=== PATIENT | male | born 1980 | race Caucasian/White ===

== ENCOUNTER 2024-02-03 16:06 | Inpatient (IN) | payer MEDICARE, MEDICAID ==
[2024-02-03 17:53] LABS: Basophils % (A) 0 %; Eosinophils # (A) 0.2 k/uL (0-0.7); Eosinophils % (A) 2 %; Lymphocytes # (A) 2.1 k/uL (1.0-4.8); Lymphocytes % (A) 26 %; MCH 30.2 pg (25.0-35.0); MCHC 34.2 g/dL (31.0-37.0); MCV 88.2 fL (80.0-100.0); Mean Platelet Volume 6.6; Monocytes # (A) 0.6 k/uL (0-1.0); Monocytes % (A) 7 %; Neutrophils # (A) 5.1 k/uL (1.3-7.7); Neutrophils % (A) 63 %; Platelet Count 345 k/uL (150-450); RBC 4.31 m/uL (4.30-5.90); RDW 13.1 % (11.5-15.5)
[2024-02-03 17:58] LABS: INR 0.9 (<1.2); Partial Thromboplastin Time 23.1 sec (22.0-30.0); Prothrombin Time 9.7 sec (10.0-12.5)
--- NOTE | 2024-02-03 18:06 | ED ---
Psych HPI - General Chief Complaint: Psychiatric Symptoms Stated Complaint: petition Time Seen by Provider: 02/03/24 16:54 Source: patient Mode of arrival: ambulatory - History of Present Illness Initial Comments: 43-year-old male with past medical history of schizophrenia, bipolar, hypertension, seizure disorder who presents emergency department with manic episode. He does present with his [facility] social welfare administrator. He did have an appointment with her today. Patient reports that he wakes up in the middle of the night with racing thoughts. He has voices that he hears in his head. He also reports that his friends are talking through his mouth. Patient has delusions that his body parts have been taken out of him. The thoughts and behavior have caused the patient's father to be very concerned about his safety. Denies any suicidal or homicidal ideations. telegraph office manager feels that the symptoms are significant enough that the patient needs to be hospitalized. - Related Data Allergies Allergy/AdvReac Type Severity Reaction Status Date / Time erythromycin base Allergy Unknown Verified 02/03/24 16:20 Childhood Penicillins Allergy Unknown Verified 02/03/24 16:20 Childhood Review of Systems ROS Statement: Those systems with pertinent positive or pertinent negative responses have been documented in the HPI. ROS Other: All systems not noted in ROS Statement are negative. Past Medical History Past Medical History: Hypertension, Seizure Disorder Past Surgical History: Tonsillectomy Past Psychological History: Bipolar, Schizophrenia Smoking Status: Former smoker Past Alcohol Use History: None Reported Past Drug Use History: None Reported General Exam Limitations: no limitations General appearance: alert, in no apparent distress Head exam: Present: atraumatic, normocephalic, normal inspection Eye exam: Present: normal appearance, PERRL, EOMI. Absent: scleral icterus, conjunctival injection, periorbital swelling ENT exam: Present: normal exam, mucous membranes moist Neck exam: Present: normal inspection. Absent: tenderness, meningismus, lymphadenopathy Respiratory exam: Present: normal lung sounds bilaterally. Absent: respiratory distress, wheezes, rales, rhonchi, stridor Cardiovascular Exam: Present: regular rate, normal rhythm, normal heart sounds. Absent: systolic murmur, diastolic murmur, rubs, gallop, clicks GI/Abdominal exam: Present: soft, normal bowel sounds. Absent: distended, tenderness, guarding, rebound, rigid Extremities exam: Present: normal inspection, full ROM, normal capillary refill. Absent: tenderness, pedal edema, joint swelling, calf tenderness Back exam: Present: normal inspection Neurological exam: Present: alert, oriented X3, CN II-XII intact Psychiatric exam: Present: normal affect, normal mood Skin exam: Present: warm, dry, intact, normal color. Absent: rash Course Vital Signs 02/03/24 16:20 Temperature 98.2 F Pulse Rate 97 Respiratory 22 Rate Blood Pressure 170/104 O2 Sat by Pulse 96 Oximetry Medical Decision Making - Medical Decision Making Was pt. sent in by a medical professional or institution (, [facility], [facility], urgent care, hospital, or alf...) When possible be specific @ -[No] Did you speak to anyone other than the patient for history (EMS, parent, family, police, friend...)? What history was obtained from this source @ -[No] Did you review nursing and triage notes (agree or disagree)? Why? @ -[I reviewed and agree with nursing and triage notes] Were old charts reviewed (outside hosp., previous admission, EMS record, old EKG, old radiological studies, urgent care reports/EKG's, alf records)? Report findings @ -[No old charts were reviewed] Differential Diagnosis (chest pain, altered mental status, abdominal pain women, abdominal pain men, vaginal bleeding, weakness, fever, dyspnea, syncope, headache, dizziness, GI bleed, back pain, seizure, CVA, palpatations, mental health, musculoskeletal)? @ -[not applicable] EKG interpreted by me (3pts min.). @ -Yes and demonstrates sinus rhythm with a rate of 94. AL interval 112. QRS 109. QTc 402. Incomplete right bundle branch block. No acute ST segment elevation or depression X-rays interpreted by me (1pt min.). @ -[None done] CT interpreted by me (1pt min.). @ -[None done] U/S interpreted by me (1pt. min.). @ -[None done] What testing was considered but not performed or refused? (CT, X-rays, U/S, labs)? Why? @ -[None] What meds were considered but not given or refused? Why? @ -[None] Did you discuss the management of the patient with other professionals (professionals i.e. , [facility], [facility], lab, RT, psych nurse, social welfare administrator, real estate legal assistant, teacher, community service officer, correctional case manager)? Give summary @ -[No] Was smoking cessation discussed for >3mins.? @ -[No] Was critical care preformed (if so, how long)? @ -[No] Were there social determinants of health that impacted care today? How? (Homelessness, low income, unemployed, alcoholism, drug addiction, transportation, low edu. Level, literacy, decrease access to med. care, fci, rehab)? @ -[No] Was there de-escalation of care discussed even if they declined (Discuss DNR or withdrawal of care, Hospice)? DNR status @ -[No] What co-morbidities impacted this encounter? (DM, HTN, Smoking, COPD, CAD, Cancer, CVA, ARF, Chemo, Hep., AIDS, mental health diagnosis, sleep apnea, morbid obesity)? @ -[None] Was patient admitted / discharged? Hospital course, mention meds given and route, prescriptions, significant lab abnormalities, going to OR and other pert inent info. @ -[hospital course] Undiagnosed new problem with uncertain prognosis? @ -[No] Drug Therapy requiring intensive monitoring for toxicity (Heparin, Nitro, Insulin, Cardizem)? @ -[No] Were any procedures done? @ -[No] Diagnosis/symptom? @ -[default] Acute, or Chronic, or Acute on Chronic? @ -[default] Uncomplicated (without systemic symptoms) or Complicated (systemic symptoms)? @ -[default] Side effects of treatment? @ -[No] Exacerbation, Progression, or Severe Exacerbation? @ -[No] Poses a threat to life or bodily function? How? (Chest pain, [place], [place], pneumonia, PE, COPD, DKA, ARF, appy, cholecystitis, CVA, Diverticulitis, Homicidal, Suicidal, threat to staff... and all critical care pts) @ -[No] - Lab Data Result diagrams: 02/03/24 17:26 02/03/24 17: Lab Results 02/03/24 02/03/24 02/03/24 Range/Units 17:26 17:26 17:26 WBC 8.0 (3.8-10.6) k/uL RBC 4.31 (4.30-5.90) m/uL Hgb 13.0 (13.0-17.5) gm/dL Hct 38.0 L (39.0-53.0) % MCV 88.2 (80.0-100.0) fL MCH 30.2 (25.0-35.0) pg MCHC 34.2 (31.0-37.0) g/dL RDW 13.1 (11.5-15.5) % Plt Count 345 (150-450) k/uL MPV 6.6 Neutrophils % 63 % Lymphocytes % 26 % Monocytes % 7 % Eosinophils % 2 % Basophils % 0 % Neutrophils # 5.1 (1.3-7.7) k/uL Lymphocytes # 2.1 (1.0-4.8) k/uL Monocytes # 0.6 (0-1.0) k/uL Eosinophils # 0.2 (0-0.7) k/uL Basophils # 0.0 (0-0.2) k/uL PT 9.7 L (10.0-12.5) sec INR 0.9 (<1.2) APTT 23.1 (22.0-30.0) sec Sodium 136 L (137-145) mmol/L Potassium 4.1 (3.5-5.1) mmol/L Chloride 107 (98-107) mmol/L Carbon Dioxide 24 (22-30) mmol/L Anion Gap 5 mmol/L BUN 14 (9-20) mg/dL Creatinine 0.81 (0.66-1.25) mg/dL Est GFR (CKD-EPI)AfAm >90 (>60 ml/min/1.73 sqM) Est GFR (CKD-EPI)NonAf >90 (>60 ml/min/1.73 sqM) Glucose 108 H (74-99) mg/dL Calcium 8.9 (8.4-10.2) mg/dL Magnesium 1.9 (1.6-2.3) mg/dL Total Bilirubin 0.3 (0.2-1.3) mg/dL AST 25 (17-59) U/L ALT 31 (4-49) U/L Alkaline Phosphatase 68 (38-126) U/L Troponin I (0.000-0.034) ng/mL Total Protein 6.9 (6.3-8.2) g/dL Albumin 4.1 (3.5-5.0) g/dL Urine Color Urine Appearance (Clear) Urine pH (5.0-8.0) Ur Specific [place] (1.001-1.035) Urine Protein (Negative) Urine Glucose (UA) (Negative) Urine Ketones (Negative) Urine Blood (Negative) Urine Nitrite (Negative) Urine Bilirubin (Negative) Urine Urobilinogen (<2.0) mg/dL Ur Leukocyte Esterase (Negative) Urine Opiates Screen (NotDetected) Ur Oxycodone Screen (NotDetected) Urine Methadone Screen (NotDetected) Ur Barbiturates Screen (NotDetected) Valproic Acid 36.2 ug/mL U Tricyclic Antidepress (NotDetected) Ur Phencyclidine Scrn (NotDetected) Ur Amphetamines Screen (NotDetected) U Methamphetamines Scrn (NotDetected) U Benzodiazepines Scrn (NotDetected) Urine Cocaine Screen (NotDetected) U Marijuana (THC) Screen (NotDetected) 02/03/24 02/03/24 Range/Units 17:26 19:30 WBC (3.8-10.6) k/uL RBC (4.30-5.90) m/uL Hgb (13.0-17.5) gm/dL Hct (39.0-53.0) % MCV (80.0-100.0) fL MCH (25.0-35.0) pg MCHC (31.0-37.0) g/dL RDW (11.5-15.5) % Plt Count (150-450) k/uL MPV Neutrophils % % Lymphocytes % % Monocytes % % Eosinophils % % Basophils % % Neutrophils # (1.3-7.7) k/uL Lymphocytes # (1.0-4.8) k/uL Monocytes # (0-1.0) k/uL Eosinophils # (0-0.7) k/uL Basophils # (0-0.2) k/uL PT (10.0-12.5) sec INR (<1.2) APTT (22.0-30.0) sec Sodium (137-145) mmol/L Potassium (3.5-5.1) mmol/L Chloride (98-107) mmol/L Carbon Dioxide (22-30) mmol/L Anion Gap mmol/L BUN (9-20) mg/dL Creatinine (0.66-1.25) mg/dL Est GFR (CKD-EPI)AfAm (>60 ml/min/1.73 sqM) Est GFR (CKD-EPI)NonAf (>60 ml/min/1.73 sqM) Glucose (74-99) mg/dL Calcium (8.4-10.2) mg/dL Magnesium (1.6-2.3) mg/dL Total Bilirubin (0.2-1.3) mg/dL AST (17-59) U/L ALT (4-49) U/L Alkaline Phosphatase (38-126) U/L Troponin I <0.012 (0.000-0.034) ng/mL Total Protein (6.3-8.2) g/dL Albumin (3.5-5.0) g/dL Urine Color Light Yellow Urine Appearance Clear (Clear) Urine pH 7.5 (5.0-8.0) Ur Specific [place] 1.024 (1.001-1.035) Urine Protein Negative (Negative) Urine Glucose (UA) Negative (Negative) Urine Ketones Negative (Negative) Urine Blood Negative (Negative) Urine Nitrite Negative (Negative) Urine Bilirubin Negative (Negative) Urine Urobilinogen <2.0 (<2.0) mg/dL Ur Leukocyte Esterase Negative (Negative) Urine Opiates Screen Not Detected (NotDetected) Ur Oxycodone Screen Not Detected (NotDetected) Urine Methadone Screen Not Detected (NotDetected) Ur Barbiturates Screen Not Detected (NotDetected) Valproic Acid ug/mL U Tricyclic Antidepress Not Detected (NotDetected) Ur Phencyclidine Scrn Not Detected (NotDetected) Ur Amphetamines Screen Not Detected (NotDetected) U Methamphetamines Scrn Not Detected (NotDetected) U Benzodiazepines Scrn Not Detected (NotDetected) Urine Cocaine Screen Not Detected (NotDetected) U Marijuana (THC) Screen Not Detected (NotDetected) Disposition Clinical Impression: Psychosis Disposition: TRANSFER TO PSYCH HOSP/UNIT Condition: Stable Is patient prescribed a controlled substance at d/c from ED?: No Referrals: Davis Gilbert DO [Primary Care Provider] - 1-2 days
[2024-02-03 18:09] LABS: ALT 31 U/L (4-49); AST 25 U/L (17-59); African American GFR (CKD) >90 (>60 ml/min/1.73 sqM); Albumin 4.1 g/dL (3.5-5.0); Alkaline Phosphatase 68 U/L (38-126); Anion Gap 5 mmol/L; Blood Urea Nitrogen 14 mg/dL (9-20); Calcium 8.9 mg/dL (8.4-10.2); Carbon Dioxide 24 mmol/L (22-30); Chloride 107 mmol/L (98-107); Glucose 108 mg/dL (74-99); Magnesium 1.9 mg/dL (1.6-2.3); Non-African American GFR(CKD) >90 (>60 ml/min/1.73 sqM); Potassium 4.1 mmol/L (3.5-5.1); Sodium 136 mmol/L (137-145); Total Bilirubin 0.3 mg/dL (0.2-1.3); Total Protein 6.9 g/dL (6.3-8.2)
[2024-02-03 18:14] LABS: Valproic Acid (Depakene) 36.2 ug/mL
--- NOTE | 2024-02-03 18:20 | XR ---
EXAMINATION TYPE: XR chest 2V DATE OF EXAM: 02/03/2024 6:06 PM COMPARISON: None. CLINICAL INDICATION: Male, 43 years old with history of Chest Pain, TECHNIQUE: XR chest 2V view(s) obtained. FINDINGS: The heart size is normal. The pulmonary vasculature is normal. The lungs are clear. IMPRESSION: 1. No acute pulmonary process. [facility], , 02/03/2024 6:18 PM
[2024-02-03 19:46] LABS: Appearance,Urine Clear (Clear); Bilirubin,Urine Negative (Negative); Color,Urine Light Yellow; Glucose,Urine (UA) Negative (Negative); Ketones,Urine Negative (Negative); PH, Urine 7.5 (5.0-8.0); Protein,Urine Negative (Negative); Specific Gravity,Urine 1.024 (1.001-1.035)
[2024-02-03 19:47] LABS: Blood,Urine Negative (Negative); Leukocyte Esterase,Urine Negative (Negative); Nitrite,Urine Negative (Negative); Urobilinogen,Urine <2.0 mg/dL (<2.0)
[2024-02-03 20:00] LABS: Amphetamine Screen,Urine Not Detected (NotDetected); Barbiturate Screen,Urine Not Detected (NotDetected); Benzodiazepines Screen,Urine Not Detected (NotDetected); Cocaine Screen,Urine Not Detected (NotDetected); Methadone Screen, Urine Not Detected (NotDetected); Opiate Screen,Urine Not Detected (NotDetected); Oxycodone Screen, Urine Not Detected (NotDetected); Phencyclidine Screen,Urine Not Detected (NotDetected); Tricyclic Antidepressant,Urine Not Detected (NotDetected); Urn Cannabinoid Scrn Not Detected (NotDetected)
[2024-02-03] MEDS ORDERED: IBUPROFEN 600 MG TAB PO PRN (23:50)
[2024-02-03] MEDS ORDERED: HALOPERIDOL LACTATE 5 MG/ML 1 ML VIAL IM PRN (23:50)
[2024-02-03] MEDS ORDERED: MAGNESIUM HYDROXIDE 2,400 MG/30 ML CUP PO PRN (23:50)
[2024-02-03] MEDS ORDERED: MAG HYDROX/AL HYDROX/SIMETH 355 ML BOTTLE PO PRN (23:50)
[2024-02-03] MEDS ORDERED: LORazepam 2 MG/ML INJ IM PRN (23:50)
[2024-02-03] MEDS ORDERED: haloperidoL 5 MG TAB PO PRN (23:50)
[2024-02-04] MEDS: LORazepam 1 MG TAB PO PRN (01:32)
[2024-02-04] MEDS: DIVALPROEX ER 500 MG TAB.ER.24H PO SCH ×3 (01:33→20:38)
--- NOTE | 2024-02-04 08:27 | P.CONS ---
History of Present Illness - History of Present Illness This is a pleasant 43 years old male with past medical history of seizure dis order of childhood, not on seizure medication currently, history of spina bifid and hypertension Also he has history of bipolar and schizophrenia and he was admitted to the mental health unit for signs symptoms of psychosis Patient was seen walking pleasantly in the hallway denying any chest pain dy spnea. No change in urine or bowel habits. No fever or chills Patient denies smoking alcohol or illicit drugs Patient also denied taking any seizure medication, he states that his seizure disorder was a childhood. He states that 1 time he followed up with neurologist Dr. Travis Mclaughlin. Patient is hemodynamically stable. He has unremarkable CBC, INR, BMP and liver enzymes. Troponin is negative. TSH is normal 2.8 Urine analysis and urine drug screen are negative. Valproic acid level is 36.2 which is within the therapeutic reference range of 50-120 and COVID test was undetected EKG showing sinus rhythm at [address]-T changes and Chest x-ray: No acute process. Review of Systems Review of systems CONSTITUTIONAL: No fever, no malaise, no fatigue. HEENT: No recent visual problems or hearing problems. Denied any sore throat. CARDIOVASCULAR: No orthopnea, PND, no palpitations, no syncope. PULMONARY: No shortness of breath, no cough, no hemoptysis. GASTROINTESTINAL: No diarrhea, no nausea, no vomiting, no abdominal pain. Normoactive bowel sounds. NEUROLOGICAL: No headaches, no weakness, no numbness. HEMATOLOGICAL: Denies any bleeding or petechiae. GENITOURINARY: Denies any burning micturition, frequency, or urgency. MUSCULOSKELETAL/RHEUMATOLOGICAL: Denies any joint pain, swelling, or any muscle pain. ENDOCRINE: Denies any polyuria or polydipsia. Past Medical History Past Medical History: Hypertension, Seizure Disorder Additional Past Medical History / Comment(s): Spina Bifida History of Any Multi-Drug Resistant Organisms: None Reported Past Surgical History: Tonsillectomy Past Anesthesia/Blood Transfusion Reactions: No Reported Reaction Past Psychological History: Bipolar, Schizophrenia Smoking Status: Former smoker Past Alcohol Use History: None Reported Past Drug Use History: None Reported Medications and Allergies Allergies Allergy/AdvReac Type Severity Reaction Status Date / Time erythromycin base Allergy Unknown Verified 02/04/24 00:05 Childhood Penicillins Allergy Unknown Verified 02/04/24 00:05 Childhood Physical Exam Vitals: Vital Signs Temp Pulse Pulse Resp BP BP Pulse Ox 02/04/24 01:42 97.8 F 84 15 162/91 96 02/04/24 00:29 97.6 F 80 20 139/86 96 02/03/24 16:20 98.2 F 97 22 170/104 96 Intake and Output 02/03/24 02/04/24 02/04/24 22:59 06:59 14:59 Other: Weight 151.046 kg 150.281 kg -GENERAL: The patient is alert and oriented x3, not in any acute distress. Well developed, well nourished. Obese HEENT: Pupils are round and equally reacting to light. EOMI. No scleral icterus. No conjunctival pallor. Normocephalic, atraumatic. No pharyngeal erythema. No thyromegaly. CARDIOVASCULAR: S1 and S2 present. No murmurs, rubs, or gallops. PULMONARY: Chest is clear to auscultation, no wheezing , no crackles. ABDOMEN: Soft, nontender, nondistended, normoactive bowel sounds. No palpable organomegaly. MUSCULOSKELETAL: No joint swelling or deformity. EXTREMITIES: No cyanosis, clubbing, or pedal edema. NEUROLOGICAL: Gross neurological examination did not reveal any focal deficits. SKIN: No rashes. no petechiae. Results CBC & Chem 7: 02/03/24 17:26 02/03/24 17:26 Labs: Abnormal Lab Results - Last 24 Hours (Table) 02/03/24 02/03/24 02/03/24 Range/Units 17:26 17:26 17:26 Hct 38.0 L (39.0-53.0) % PT 9.7 L (10.0-12.5) sec Sodium 136 L (137-145) mmol/L Glucose 108 H (74-99) mg/dL Assessment and Plan Assessment: - Psychosis in the terms of his schizophrenia and bipolar disorder and other psychiatric nurses, management is deferred to the psych primary team - Obesity with BMI of 44.9 -History of seizure disorder of childhood, currently not on seizure medication, follow-up as an outpatient -Hypertension, currently stage I, he was not on home medication. List, will start him on Norvasc 5 mg -History of spina bifida Thank you for consulting us
[2024-02-04] MEDS: LOSARTAN-HCTZ 50-12.5 MG 1 EACH TAB PO SCH (08:35)
[2024-02-04] MEDS: SERTRALINE 50 MG TAB PO SCH (08:36)
[2024-02-04] MEDS: ATORVASTATIN 20 MG TAB PO SCH (08:36)
[2024-02-04] MEDS: amLODIPine 5 MG TAB PO SCH (08:37)
[2024-02-04] MEDS ORDERED: DIVALPROEX ER 500 MG TAB.ER.24H PO SCH ×2 (09:00)
--- NOTE | 2024-02-04 11:24 | P.HP ---
Psychiatric H&P - . History & Physical: Allergies Allergy/AdvReac Type Severity Reaction Status Date / Time erythromycin base Allergy Unknown Verified 02/04/24 00:05 Childhood Penicillins Allergy Unknown Verified 02/04/24 00:05 Childhood Vital Signs Temp 97.8 F 02/04/24 01:42 Pulse 84 02/04/24 01:42 Resp 15 02/04/24 01:42 BP 162/91 02/04/24 01:42 Pulse Ox 96 02/04/24 01:42 FiO2 Intake & Output 02/03/24 02/04/24 02/04/24 18:59 06:59 18:59 Weight 147.418 kg 150.281 kg Laboratory Last Values WBC 8.0 k/uL (3.8-10.6) 02/03/24 17: RBC 4.31 m/uL (4.30-5.90) 02/03/24 17:26 Hgb 13.0 gm/dL (13.0-17.5) 02/03/24 17: Hct 38.0 % (39.0-53.0) L 02/03/24 17: MCV 88.2 fL (80.0-100.0) 02/03/24 17: MCH 30.2 pg (25.0-35.0) 02/03/24 17: MCHC 34.2 g/dL (31.0-37.0) 02/03/24 17: RDW 13.1 % (11.5-15.5) 02/03/24 17: Plt Count 345 k/uL (150-450) 02/03/24 17: MPV 6.6 02/03/24 17: Neutrophils % 63 % 02/03/24 17: Lymphocytes % 26 % 02/03/24 17: Monocytes % 7 % 02/03/24 17: Eosinophils % 2 % 02/03/24 17: Basophils % 0 % 02/03/24 17: Neutrophils # 5.1 k/uL (1.3-7.7) 02/03/24 17: Lymphocytes # 2.1 k/uL (1.0-4.8) 02/03/24 17: Monocytes # 0.6 k/uL (0-1.0) 02/03/24 17: Eosinophils # 0.2 k/uL (0-0.7) 02/03/24 17: Basophils # 0.0 k/uL (0-0.2) 02/03/24 17:26 PT 9.7 sec (10.0-12.5) L 02/03/24 17:26 INR 0.9 (<1.2) 02/03/24 17: APTT 23.1 sec (22.0-30.0) 02/03/24 17:26 Sodium 136 mmol/L (137-145) L 02/03/24 17:26 Potassium 4.1 mmol/L (3.5-5.1) 02/03/24 17: Chloride 107 mmol/L (98-107) 02/03/24 17: Carbon Dioxide 24 mmol/L (22-30) 02/03/24 17: Anion Gap 5 mmol/L 02/03/24 17: BUN 14 mg/dL (9-20) 02/03/24 17: Creatinine 0.81 mg/dL (0.66-1.25) 02/03/24 17:26 Est GFR (CKD-EPI)AfAm >90 (>60 ml/min/1.73 sqM) 02/03/24 17:26 Est GFR (CKD-EPI)NonAf >90 (>60 ml/min/1.73 sqM) 02/03/24 17:26 Glucose 108 mg/dL (74-99) H 02/03/24 17: Calcium 8.9 mg/dL (8.4-10.2) 02/03/24 17: Magnesium 1.9 mg/dL (1.6-2.3) 02/03/24 17:26 Total Bilirubin 0.3 mg/dL (0.2-1.3) 02/03/24 17:26 AST 25 U/L (17-59) 02/03/24 17:26 ALT 31 U/L (4-49) 02/03/24 17:26 Alkaline Phosphatase 68 U/L (38-126) 02/03/24 17:26 Troponin I <0.012 ng/mL (0.000-0.034) 02/03/24 17: Total Protein 6.9 g/dL (6.3-8.2) 02/03/24 17: Albumin 4.1 g/dL (3.5-5.0) 02/03/24 17:26 TSH 2.850 mIU/L (0.465-4.680) 02/04/24 07:03 Urine Color Light Yellow 02/03/24 19: Urine Appearance Clear (Clear) 02/03/24 19: Urine pH 7.5 (5.0-8.0) 02/03/24 19: Ur Specific [place] 1.024 (1.001-1.035) 02/03/24 19: Urine Protein Negative (Negative) 02/03/24 19: Urine Glucose (UA) Negative (Negative) 02/03/24: Urine Ketones Negative (Negative) 02/03/24: Urine Blood Negative (Negative) 02/03/24: Urine Nitrite Negative (Negative) 02/03/24: Urine Bilirubin Negative (Negative) 02/03/24: Urine Urobilinogen <2.0 mg/dL (<2.0) 02/03/24 19:30 Ur Leukocyte Esterase Negative (Negative) 02/03/24 19:30 Urine Opiates Screen Not Detected (NotDetected) 02/03/24 19:30 Ur Oxycodone Screen Not Detected (NotDetected) 02/03/24 19:30 Urine Methadone Screen Not Detected (NotDetected) 02/03/24 19:30 Ur Barbiturates Screen Not Detected (NotDetected) 02/03/24 19:30 Valproic Acid 36.2 ug/mL 02/03/24 17:26 U Tricyclic Antidepress Not Detected (NotDetected) 02/03/24 19:30 Ur Phencyclidine Scrn Not Detected (NotDetected) 02/03/24 19:30 Ur Amphetamines Screen Not Detected (NotDetected) 02/03/24 19:30 U Methamphetamines Scrn Not Detected (NotDetected) 02/03/24 19:30 U Benzodiazepines Scrn Not Detected (NotDetected) 02/03/24 19:30 Urine Cocaine Screen Not Detected (NotDetected) 02/03/24 19:30 U Marijuana (THC) Screen Not Detected (NotDetected) 02/03/24 19:30 SARS-CoV-2 (PCR) Not Detected (Not Detectd) 02/03/24 22:01 02/04/24 11:17 IDENTIFYING DATA: Patient is a 43-year-old male who lives with his dad and works at [employer] HPI: per chart, patient was brought by his father and sample case porter because he has been manic, having racing thoughts at night, had hallucinations, and had delusions. patient states that he has had poor sleep, racing thoughts, and paranoid thoughts. in addition, he has had poor concentration, high energy,and pressured speech. States that he feels like "someone shot me" specifically his uncle and this is causing him to get angry. states that he has had these paranoid thoughts for about 3 years. states that at times, he thinks that his father may not be his actual fatherAlso reports some auditory hallucinations. reports a long history of noncompliance with medications because he forgets to take his m edications. States that his father thinks that the shots are not working.. Patient denies any suicidal or homicidal ideations intent or plan. At this time patient denies any visual hallucinations. PAST PSYCHIATRIC HISTORY: -goes to [facility] for "bipolar and schizophrenia" -on Depakote 500 mg daily and 1500 mg qhs, zoloft 50 mg daily, and invega sustenna (next shot is due next week) -one admission in the past for similar symptoms, was started on risperdal at that time which he states helped significantly PMH:HTN, spina bifida ALLERGIES: as per EMR CHEMICAL DEPENDENCY HISTORY: denies FAMILY PSYCHIATRIC/SUBSTANCE USE HISTORY: psychosis in aunt, depression in mother, father OD'ed in the remote past SOCIAL HISTORY: lives with his father, on SSI and SSA, works at [employer] through [facility] MENTAL STATUS EXAM: General Appearance: Patient appears to be older thanstated age is alert, [directable, and attempts to cooperate]. dressed appropriately in hospital gown Behavior: Patient is seated without any agitated behavior. [] Speech: Patient's speech is [fluent and nonpressured.] Mood/Affect: Patient reports their mood is "getting better", affect is congruent and full range Suicidality/Homicidality: Patient denies having any homicidal ideation intent or plan. [Denies any suicidal ideations intent or plan] Perceptions: Patient denies any visual hallucinations [and denies any auditory hallucinations] Though content/process: multiple delusions elicited Memory and concentration: AOX3, grossly intact for the purposes of this session. Judgment and insight: [poor] STRENGTHS/WEAKNESSES: strength is that patient is [resilient]. Weakness is that patient [has history of noncompliance INTELLECT: [below average] IMPRESSIONS: schizoaffective disorder: Bipolar type, history of noncompliance PLAN: -Patient is admitted under [voluntary] status to MHU for stabilization of psychiatric symptoms and safety. -Medications : Will start patient on Risperdal 1 mgVID with plan to start Ri sperdal Consta, continue Depakote 500 mg daily and 1500 mg at bedtime, discontinue Zoloft -Ativan [and Haldol] PRN for agitation/aggression -Patient was informed of the risks, benefits and side effects of the medication and patient verbally consented to taking the medications. -Internal Medicine consult to perform medical evaluation and physical. -SW on board for discharge planning. Encourage patient to participate in groups to work on coping skills. [Will await deferral and court date.] []
[2024-02-04] MEDS: risperiDONE ODT 1 MG TAB PO SCH (11:34)
[2024-02-04 13:07] LABS: Chol/HDL Ratio 5.04 Ratio; LDL Cholesterol,Calculated 100.7 mg/dL (0.0-131.0)
[2024-02-05 06:50] VITALS: RESP 16
--- NOTE | 2024-02-05 13:12 | P.PN ---
Progress Note - Text Interval history: Patient was seen [wandering the hallways] and was directable and agreeable to speak with report writer. states that his sleep has significantly improved, he no longer has racing thoughts, and the hallucinations have resolved. He also states that his anger has subsided,, and he no longer feels "hyper" also denies paranoia. At this time patient denies any suicidal or homicidal ideations intent or plan. Denies any Auditory or visual hallucinations. Patient denies any side effects from the medications and has been compliant with meds. Mental status exam: General Appearance: [Patient appears to be older thanstated age is alert, directable, and cooperative.] Behavior: [No agitated behavior. Patient is calm and directable] Speech: Patient's speech is fluent and nonpressured. Mood/Affect: Mood is improving mildly, affect is congruent and constricted. Suicidality/Homicidality: Patient denies having any suicidal or homicidal ideation intent or plan. Perceptions: Patient denies any auditory or visual hallucinations. Though content/process: [There is no evidence of any delusional thought content and thought process is linear and goal-directed.] Memory and concentration: AOX3, grossly intact for the purposes of this session Judgment and insight: improving mildly Assessment/Plan: Continue with current diagnosis. Patient continues to meet criteria for inpatient psychiatric admission for symptom stabilization and safety.[Patient will be maintained on current psychotropic medication regimen.] Monitor for medication compliance and for any psychotropic medication side effects. Will continue to monitor ongoing response to treatment. Encouraged participation in milieu.
[2024-02-05] MEDS: ACETAMINOPHEN TAB 325 MG TAB PO PRN (14:35)
[2024-02-06 07:21] VITALS: TEMP 97.1
--- NOTE | 2024-02-06 11:57 | P.PN ---
Progress Note - Text Progress Note Date: 02/06/24 Interval History: Patient was seen in group and was directable and agreeable to speak with automotive service writer in the office. He states feeling better today. He was able to express the issues that led to this admission including medication nonadherence and paranoia. Patient states he feels as though his monthly Invega shot has not been helpful as he was reporting still experiencing paranoia, racing thoughts and difficulties with sleep. He feels as though a pill pack will be helpful for him once discharged given his history of nonadherence with meds. He reports sleeping better today and that things are better with his father as he was fearful that he would not be able to return home with him. He is agreeable with transitioning to Risperdal Consta. At this time patient denies any suicidal or homicidal ideations, intent or plan. Patient denies any auditory, visual hallucinations and denies any paranoia or delusions. Patient denies any side effects from the medications and has been compliant with meds. Mental Status Exam: General Appearance: Patient appears to be stated age is alert, directable, and cooperative. Behavior: Patient is calmly seated without any agitated behavior. Speech: Patient's speech is fluent and nonpressured. Mood/Affect: Mood is improving mildly, affect is congruent and constricted. Suicidality/Homicidality: Patient denies having any suicidal or homicidal ideation intent or plan. Perceptions: Patient denies any visual hallucinations and denies any auditory hallucinations Though content/process: There is no evidence of any delusional thought content and thought process is linear and goal-directed. Memory and concentration: AOX3, grossly intact for the purposes of this session Judgment and insight: Improving mildly Assessment Schizoaffective disorder, bipolar type Medication nonadherence Plan: -Patient continues to meet criteria for inpatient psychiatric admission for symptom stabilization and safety. Patient has signed adult voluntary form and medication consent and was placed in patient's chart. -Medications: Continue Depakote ER 500 mg daily and 1500 mg at bedtime for mood stabilization, Risperdal ODT 1 mg twice daily for psychosis will transition to Risperdal Consta tomorrow given nonadherence -When necessary Ativan and Haldol for agitation/aggression. -Labs: Reviewed -NRT -not needed this patient does not smoke -SW on board for discharge planning. Encouraged the patient to participate in milieu. Anticipate discharge home with father on Tuesday
--- NOTE | 2024-02-07 11:58 | P.PN ---
Progress Note - Text Progress Note Date: 02/07/24 Interval History: Patient was seen wandering the hallways and was directable and agreeable to stephanie wolf with policy writer typist in the office. He reports feeling really well today. He states his racing thoughts have improved significantly and he has now able to control them. He states his goal today is to wait his turn when speaking and be more mindful when he speaks. He states sleeping okay. He is agreeable with transitioning to Risperdal Consta today. At this time patient denies any suicidal or homicidal ideations, intent or plan. Patient denies any auditory, visual hallucinations and denies any paranoia or delusions. Patient denies any side effects from the medications and has been compliant with meds. Mental Status Exam: General Appearance: Patient appears to be stated age is alert, directable, and cooperative. Behavior: Patient is calmly seated without any agitated behavior. Speech: Patient's speech is fluent and nonpressured. Mood/Affect: Mood is improving mildly, affect is congruent and bright, reactive. Suicidality/Homicidality: Patient denies having any suicidal or homicidal ideation intent or plan. Perceptions: Patient denies any visual hallucinations and denies any auditory hallucinations Though content/process: There is no evidence of any delusional thought content a nd thought process is linear and goal-directed. Memory and concentration: AOX3, grossly intact for the purposes of this session Judgment and insight: Improving mildly Assessment Schizoaffective disorder, bipolar type Medication nonadherence Plan: -Patient continues to meet criteria for inpatient psychiatric admission for symptom stabilization and safety. Patient has signed adult voluntary form and medication consent and was placed in patient's chart. -Medications: Risperdal Consta 25 mg IM every 2 weeks to be given today, next dose due on 02/21/2024 with oral bridge of Risperdal ODT 1 mg twice daily to be continued until then. Continue Depakote ER 500 mg daily and 1500 mg at bedtime for mood stabilization -When necessary Ativan and Haldol for agitation/aggression. -Labs: Reviewed -NRT -not needed as patient does not smoke -SW on board for discharge planning. Encouraged the patient to participate in milieu. Anticipate discharge home with father tomorrow
[2024-02-08 07:11] VITALS: BP 132/88; PULSE 108
--- NOTE | 2024-02-08 12:30 | P.DS ---
Providers Date of admission: 02/03/24 23:35 Expected date of discharge: 02/08/24 Attending physician: Shawna Regan MD Consults: 02/03/24 23:50 Consult Physician Routine Consulting Provider: Davis Gilbert Consult Reason/Comments: For H & P for Medical Follow Up Do you want consulting provider notified?: Already Contacted Primary care physician: Davis Gilbert - Discharge Diagnosis(es) (1) Schizoaffective disorder, bipolar type Current Visit: Yes Status: Acute Priority: High (2) Nonadherence to medication Current Visit: Yes Status: Acute Priority: High Hospital Course: Admission HPI: Admission note was completed by Dr. Hammond "per chart, patient was brought by his father and case making machine operator because he has been manic, having racing thoughts at night, had hallucinations, and had delusions. patient states that he has had poor sleep, racing thoughts, and paranoid thoughts. in addition, he has had poor concentration, high energy,and pressured speech. States that he feels like "someone shot me" specifically his uncle and this is causing him to get angry. states that he has had these paranoid thoughts for about 3 years. states that at times, he thinks that his father may not be his actual fatherAlso reports some auditory hallucinations. reports a long history of noncompliance with medications because he forgets to take his medications. States that his father thinks that the shots are not working.. Patient denies any suicidal or homicidal ideations intent or plan. At this time patient denies any visual hallucinations." Hospital course: Upon admission to the unit patient was directable and agreeable to commence treatment and signed adult voluntary form.. Patient got along well with other patients on the unit and followed unit protocol. Patient was compliant with the medications and denied any side effects throughout hospital course. Patient was started on Risperdal ODT 1 mg twice daily for psychosis and transition to Risperdal Consta 25 mg IM every 2 weeks, last given on 02/06 and next due on 02/20. Patient to be continued on oral bridge of Risperdal ODT 1 mg twice daily until next shot. Patient was continued on Depakote ER 500 mg daily and 1500 mg at bedtime for mood stabilization. Patient spoke of his stressors and engaged in therapy both group and individual. Patient was also seen by medical team for history and physical exam. Throughout the course of the hospitalization patient gradually improved with regards to mood, anxiety, sleep and returned back to their baseline level of functioning. On the day of discharge patient denied any suicidal or homicidal ideations intent or plan denied any auditory or visual hallucinations. The patient denied any access to guns or weapons. Patient denied any paranoia and did not endorse any delusions. Patient does not have a significant history of substance abuse and was counseled on abstaining from all substances including alcohol and marijuana. Patient was also counseled on the medications and need for regular compliance and was encouraged to follow-up with their outpatient appointment for mental health and also for primary care. Prior to discharge a family meeting will be arranged by social sciences professor to answer any questions and ensure safety upon discharge incuding making sure that guns/weapons are either removed from the home or locked away. Patient to be discharged home to [facility] with [facility] follow-up. Mental status exam: General Appearance: Patient appears to be stated age is alert, pleasant, and cooperative. Patient is in no acute distress and has improved hygiene and groom ing Behavior: Patient is calmly seated without any agitated behavior. Speech: Patient's speech is fluent and talkative but nonpressured. Mood/Affect: Patient reports their mood is "good", affect is congruent and euthymic, bright. Suicidality/Homicidality: Patient denies having any suicidal or homicidal ideation intent or plan. Perceptions: Patient denies any auditory or visual hallucinations. Though content/process: There is no evidence of any delusional thought content and thought process is linear and goal-directed. Memory and concentration: AOX3, grossly intact for the purposes of this session. Can spell "WORLD" backwards correctly. Judgment and insight: Fair Impression: Schizoaffective disorder, bipolar type Medication nonadherence Plan: -Continue with discharge today as patient has improved and stabilized psychiatrically and is not currently an imminent threat to themself and/or others. -Continue medications: Risperdal Consta 25 mg IM every 2 weeks, last given on 02/07/2024 and next due on 02/21/2024 with oral bridge of Risperdal ODT 1 mg twice daily to be continued for 2 weeks. Depakote ER 500 mg daily and 1500 mg at bedtime -Patient was counseled on the need for medication compliance and appropriate follow-up at mental health and also primary care for medical issues. Patient verbalized understanding and agreed. -Social work to help coordinate patients discharge today. also to ensure safe home environment that guns/weapons are either removed from the home or locked away. Social work also to arrange for patients follow up appointments with [facility] for psychiatric care along with follow up with primary care provider. -Patient counseled on abstaining from recreational drugs and marijuana and alcohol. Was informed/educated on the adverse effects on their physical and mental health. Patient verbally agreed and understood. -Patient was instructed to return to the hospital or seek immediate medical care if their psychiatric or medical symptoms do worsen or reoccur. Abnormal Labs 02/03/24 02/03/24 02/03/24 17:26 17:26 17:26 Hct 38.0 L PT 9.7 L Sodium 136 L Glucose 108 H Hemoglobin A1c Triglycerides VLDL Cholesterol, Calc HDL Cholesterol 02/04/24 02/04/24 07:03 07:03 Hct PT Sodium Glucose Hemoglobin A1c 6.7 H Triglycerides 230.00 H VLDL Cholesterol, Calc 46.00 H HDL Cholesterol 36.30 L Vital Signs Temp 97.1 F L 02/06/24 07:21 Pulse 108 H 02/08/24 07:11 Resp 16 02/07/24 07:04 BP 132/88 02/08/24 07:11 Pulse Ox 98 02/07/24 07:04 FiO2 Allergies Allergy/AdvReac Type Severity Reaction Status Date / Time erythromycin base Allergy Unknown Verified 02/04/24 00:05 Childhood Penicillins Allergy Unknown Verified 02/04/24 00:05 Childhood Plan - Discharge Summary Discharge Rx Participant: Yes New Discharge Prescriptions: New Atorvastatin [Lipitor] 20 mg PO DAILY tab Divalproex ER [Depakote ER] 1,500 mg PO HS 30 Days #90 tab Divalproex ER [Depakote ER] 500 mg PO DAILY 30 Days #30 tab Losartan-Hctz 50-12.5 mg [Hyzaar 50-12.5] 1 each PO DAILY tab amLODIPine [Norvasc] 5 mg PO DAILY tab risperiDONE ODT [RisperDAL M-TAB] 1 mg PO BID 15 Days #30 tab risperiDONE microspheres [RisperDAL CONSTA] 25 mg IM [id number] #1 each Discharge Medication List Atorvastatin [Lipitor] 20 mg PO DAILY tab 02/08/24 [Rx] Divalproex ER [Depakote ER] 1,500 mg PO HS 30 Days #90 tab 02/08/24 [Rx] Divalproex ER [Depakote ER] 500 mg PO DAILY 30 Days #30 tab 02/08/24 [Rx] Losartan-Hctz 50-12.5 mg [Hyzaar 50-12.5] 1 each PO DAILY tab 02/08/24 [Rx] amLODIPine [Norvasc] 5 mg PO DAILY tab 02/08/24 [Rx] risperiDONE ODT [RisperDAL M-TAB] 1 mg PO BID 15 Days #30 tab 02/08/24 [Rx] risperiDONE microspheres [RisperDAL CONSTA] 25 mg IM [id number] #1 each 02/08/24 [Rx] Follow up Appointment(s)/Referral(s): Aviva Killian [Other] - As Needed ([facility] T[employer] available to assist with any aftercare needs) [facility] [Outside] - 02/10/24 2:30 pm (02/10/2024 2:30PM - 3:30PM ANEUDY DELUCA 02/20/2024 10:30AM - 11:00AM BELINDA AGUAYO ) Davis Gilbert DO [Primary Care Provider] - 1-2 days Patient Instructions/Handouts: Schizoaffective Disorder (DC) Activity/Diet/Wound Care/Special Instructions: [facility] Discharge Info Avoid the use of street drugs and alcohol. Take all medications as prescribed. When you are in need of refills on your medications, please contact your outpatient medical provider and/or outpatient psychiatrist. Please go to your scheduled outpatient appointments for aftercare treatment. If symptoms return or become worse, call the crisis line at or and/or visit the nearest emergency room for assistance. National Suicide and Crisis Lifeline - call or text 771. Discharge Disposition: HOME SELF-CARE
== END 2024-02-08 12:23 | disposition home or self-care (01) | DRG 885 ==
LOC: EC 16:06 → 3MHU 23:35
PROVIDERS: ADMIT Psychiatry & Neurology Psychiatry; ATTEND Psychiatry & Neurology Psychiatry
DX: F25.0 Schizoaffective disorder, bipolar type (principal); Z68.41 Body mass index [BMI] 40.0-44.9, adult; F29 Unspecified psychosis not due to a substance or known physiological condition; I10 Essential (primary) hypertension; E66.9 Obesity, unspecified; G40.909 Epilepsy, unspecified, not intractable, without status epilepticus; F41.9 Anxiety disorder, unspecified; Z87.891 Personal history of nicotine dependence; Q05.9 Spina bifida, unspecified; Z88.0 Allergy status to penicillin; Z88.1 Allergy status to other antibiotic agents; Z91.199 Patient's noncompliance with other medical treatment and regimen due to unspecified reason; Z79.899 Other long term (current) drug therapy
CPT/HCPCS: 36415; 71046; 80053; 80061; 80164; 80306; 81003; 82075; 83036; 83735; 84443; 84484; 85025; 85610; 85730; 87635; 93005; 99285